=== PATIENT | male | born 1995 | race Caucasian/White ===

== ENCOUNTER → 2017-02-18 | Outpatient (CLI) | payer OTHER ==
[2014-10-22 21:53] VITALS: BP 124/69
--- NOTE | 2017-02-18 11:28 | RAD ---
Exam performed: Complete abdominal ultrasound. History: Epigastric abdominal pain. Date of service: 02/18/17. Comparison: None available Technique: Real-time grayscale imaging of the complete abdomen is performed and images are obtained. Findings: The liver is normal in size and echogenicity without focal lesions. There is no intra or extrahepatic biliary ductal dilatation. Common bile duct measures 2.0 mm. Bilateral kidneys, spleen and visualized pancreas appear normal. The right kidney measures 11.4 x 6.2 x 4.9 cm the left kidney measures 10.7 x 5.6 x 5.3 cm. There is no hydronephrosis or nephrolithiasis. The visualized IVC and aorta appear normal. Impression: Negative complete abdominal ultrasound.
== END | disposition home or self-care (01) ==
LOC: US 09:47
PROVIDERS: ATTEND Family Medicine
DX: R10.13 Epigastric pain (principal); R63.4 Abnormal weight loss; R63.0 Anorexia; K52.89 Other specified noninfective gastroenteritis and colitis
CPT/HCPCS: 76700

== ENCOUNTER → 2017-03-07 | Day surgery (SDC) | payer OTHER ==
[2014-10-22 21:53] VITALS: BP 124/69
[~2017-03-07] MED LIST: IV RINGERS SOLUTION,LACTATED 1,000 ML IV ONE; LIDOCAINE 2% PF Vial for OR 5 ML VIAL. ONE; PROPOFOL 20 ML IV ONE
== END | disposition home or self-care (01) ==
LOC: SURG 12:49
PROVIDERS: ATTEND Internal Medicine Gastroenterology
DX: K29.70 Gastritis, unspecified, without bleeding (principal)
CPT/HCPCS: 43239; J2704; J3010; J7120; J2001

== ENCOUNTER → 2017-07-04 | Outpatient (CLI) | payer OTHER ==
[2014-10-22 21:53] VITALS: BP 124/69
[~2017-07-04] MED LIST changes: +CONTRAST GIVEN MC PRN; +IOHEXOL 240 MG/ML 50ML VIAL. ONE; -IV RINGERS SOLUTION,LACTATED 1,000 ML IV ONE; -LIDOCAINE 2% PF Vial for OR 5 ML VIAL. ONE; -PROPOFOL 20 ML IV ONE
[2017-07-04] MEDS: IOHEXOL 300 MG/ML 75 ML VIAL. IV ONE (09:29)
--- NOTE | 2017-07-04 10:21 | RAD ---
CT of the abdomen and pelvis with contrast, 07/04/2017: History: Epigastric pain Multidetector CT imaging was performed following oral and IV administration of contrast. There is a small 19 mm low-density lesion present within the inferior aspect of the left lobe of the liver. It does not have the appearance of a simple cyst. It is best visualized on sagittal image 45 of series #4 and axial image 24 of series #2. The liver is otherwise unremarkable. No gallbladder abnormality is seen. The pancreas is unremarkable. The spleen is of normal size. No renal or adrenal abnormality is detected. The abdominal aorta is of normal caliber. No abdominal or pelvic adenopathy is seen. Mild diffuse bladder wall thickening is probably largely due to lack of bladder distention. The bowel loops are not dilated. There is a moderate amount of stool throughout the colon. A portion of the appendix is visualized and it is unremarkable. No free air or free fluid is evident in the abdomen or pelvis. IMPRESSION: 1. Mild diffuse bladder wall thickening due to poor bladder distention versus cystitis. Clinical correlation is suggested. 2. Small nonspecific liver lesion. A targeted hepatic ultrasound of this region is suggested for further evaluation. 3. The abdomen and pelvis are otherwise unremarkable. PQRS Compliance Statement: One or more of the following individualized dose reduction techniques were utilized for this examination: 1. Automated exposure control 2. Adjustment of the mA and/or kV according to patient size 3. Use of iterative reconstruction technique
== END | disposition home or self-care (01) ==
LOC: CT 08:18
PROVIDERS: ATTEND Family Medicine
DX: K52.89 Other specified noninfective gastroenteritis and colitis (principal); R10.816 Epigastric abdominal tenderness; R10.13 Epigastric pain; K76.9 Liver disease, unspecified
CPT/HCPCS: 74177; Q9966; Q9967

== ENCOUNTER → 2017-10-03 | Outpatient (CLI) | payer OTHER ==
[2014-10-22 21:53] VITALS: BP 124/69
--- NOTE | 2017-10-03 10:22 | RAD ---
Complete abdominal ultrasound 10/03/2017 INDICATION: Weight loss. Epigastric pain. Abdominal mass. COMPARISON STUDY: CT of the abdomen and pelvis July 04, 2017 Discussion: Ultrasound evaluation of the abdomen was performed. Static images are submitted to PACS. Pancreas is unremarkable in appearance. Visualized aorta and IVC are unremarkable in appearance. The gallbladder is unremarkable in appearance without evidence of wall thickening, stones, or sludge. Portal venous flows in the normal direction. The common bile duct is nondilated at 3 mm. There is borderline hepatomegaly. Liver measures 17.8 cm longitudinally. No focal hepatic lesions are identified. The nonspecific hypodense lesion at the border of the left and right hepatic lobes, as identified on prior CT scan was not identified sonographically. Right kidney is normal in appearance measuring 11.4 cm in length. Left kidney is normal in appearance measuring 11.5 cm in length. The spleen is normal in appearance measuring 11 cm longitudinally. IMPRESSION: 1. Borderline hepatomegaly 2. Previously seen hypodense lesion at the junction of the left and right hepatic lobes is not identified sonographically. Consider hepatic protocol MRI for further characterization. Electronically signed by: Jhon Kemp MD (10/03/2017 10:19 AM) [id number]
== END | disposition home or self-care (01) ==
LOC: US 08:49
PROVIDERS: ATTEND Family Medicine
DX: K52.89 Other specified noninfective gastroenteritis and colitis (principal); R63.0 Anorexia; R63.4 Abnormal weight loss; R93.2 Abnormal findings on diagnostic imaging of liver and biliary tract; R16.0 Hepatomegaly, not elsewhere classified
CPT/HCPCS: 76700